=== PATIENT | female | born 1980 | race Caucasian/White ===

== ENCOUNTER 2016-05-04 17:02 | Emergency (ER) | payer MEDICAID ==
--- NOTE | 2016-05-04 17:19 | EDPHY ---
H & P Stated Complaint: abd pain since last night; x 18 days Time Seen by Provider: 05/04/16 17:18 HPI/ROS: CHIEF COMPLAINT: HISTORY OF PRESENT ILLNESS: [No fever, chills, chest pain, shortness of breath, palpitations, vomiting, diarrhea, urinary complaints, headache, lightheadedness. ] REVIEW OF SYSTEMS: Aside from elements discussed in the HPI, a comprehensive 10-point review of systems was reviewed and is negative. PAST MEDICAL HISTORY: SOCIAL HISTORY: VITAL SIGNS: Reviewed by me GENERAL: Well-developed, well-nourished, resting comfortably in no respiratory distress. HEENT: Atraumatic. Eyes: No icterus, no injection. Mouth: moist mucous membranes. No erythema or lesions. Neck: supple with no adenopathy. LUNGS: Clear to auscultation bilaterally, no wheezes, rhonchi or rales. CARDIAC: Regular rate and rhythm, no rubs, murmurs or gallops. ABDOMEN: Soft, nontender, nondistended, bowel sounds normal. BACK: No CVA tenderness. EXTREMITIES: No trauma. No edema. Range of motion is normal throughout. NEURO: Alert and oriented, grossly nonfocal. SKIN: Warm and dry, no rash. PSYCHIATRIC: Normal mentation, no agitation. Portions of this note were transcribed by a medical assistant secretary. I personally performed a history, physical exam, medical decision making, and confirmed accuracy of information the transcribed note. - Personal History Current Tetanus Diphtheria and Acellular Pertussis (TDAP): Yes - Medical/Surgical History Other PMH: 18 days post - Social History Smoking Status: Former smoker Constitutional: Initial Vital Signs Temperature (C) 37.8 C 05/04/16 17:02 Heart Rate 103 H 05/04/16 17:02 Respiratory Rate 18 05/04/16 17:02 Blood Pressure 128/68 H 05/04/16 17:02 O2 Sat (%) 97 05/04/16 17:02 O2 Delivery Mode Room Air Allergies/Adverse Reactions: doxycycline calcium [From Vibramycin] Allergy (Verified 05/04/16 17:08) doxycycline hyclate [From Vibramycin] Allergy (Verified 05/04/16 17:08) doxycycline monohydrate [From Vibramycin] Allergy (Verified 05/04/16 17:08) Home Medications: Medication Instructions Recorded NK [No Known Home Meds] 05/04/16 Report Scribed for: Analisa Jackson Report Scribed by: Jayme Gautam Date of Report: 05/04/16 Time of Report: 17:19
--- NOTE | 2016-05-04 18:02 | EDPHY ---
H & P Stated Complaint: abd pain since last night; x 18 days Time Seen by Provider: 05/04/16 17:18 HPI/ROS: CHIEF COMPLAINT: Abdominal pain. HISTORY OF PRESENT ILLNESS: The patient is a 36-year-old female 18 days presenting with upper abdominal pain since last night. The pain does not radiate. It is "throbbing" in nature. She denies alleviating factors. Pain is worsened with deep breathing. No fever, chills, chest pain, shortness of breath, palpitations, vomiting, diarrhea, urinary complaints, headache, lightheadedness. Her last was unassisted and at home. She did have to take her baby to the hospital a few hours after and he was diagnosed with transposition of the great vessels. Her BMs have been normal. She reports her lochia has been decreasing. REVIEW OF SYSTEMS: Aside from elements discussed in the HPI, a comprehensive 10-point review of systems was reviewed and is negative. PAST MEDICAL HISTORY: Denies. 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 Nonsmoker. Patient is nursing. VITAL SIGNS: Reviewed by me GENERAL: Well-developed, well-nourished, resting comfortably in no respiratory distress. HEENT: Atraumatic. Eyes: No icterus, no injection. Mouth: moist mucous membranes. No erythema or lesions. Neck: supple with no adenopathy. LUNGS: Clear to auscultation bilaterally, no wheezes, rhonchi or rales. CARDIAC: Tachycardic. Flow murmur. No rubs, murmurs or gallops. ABDOMEN: Mildly distended. Diffusely tender, especially in bilateral lower quadrants. Soft, bowel sounds normal. BACK: No CVA tenderness. EXTREMITIES: No trauma. No edema. Range of motion is normal throughout. NEURO: Alert and oriented, grossly nonfocal. SKIN: Warm and dry, no rash. PSYCHIATRIC: Normal mentation, no agitation. Portions of this note were transcribed by a medical staff specialist. I personally performed a history, physical exam, medical decision making, and confirmed accuracy of information the transcribed note. Source: Patient Exam Limitations: No limitations - Personal History Current Tetanus Diphtheria and Acellular Pertussis (TDAP): Yes - Medical/Surgical History Other PMH: 18 days post - Social History Smoking Status: Former smoker Constitutional: Initial Vital Signs Temperature (C) 37.8 C 05/04/16 17:02 Heart Rate 103 H 05/04/16 17:02 Respiratory Rate 18 05/04/16 17:02 Blood Pressure 128/68 H 05/04/16 17:02 O2 Sat (%) 97 05/04/16 17:02 O2 Delivery Mode Room Air Allergies/Adverse Reactions: doxycycline calcium [From Vibramycin] Allergy (Verified 05/04/16 17:08) doxycycline hyclate [From Vibramycin] Allergy (Verified 05/04/16 17:08) doxycycline monohydrate [From Vibramycin] Allergy (Verified 05/04/16 17:08) Home Medications: Medication Instructions Recorded NK [No Known Home Meds] 05/04/16 Medical Decision Making - Diagnostics Imaging: Study: Ultrasound of the: Uterus. Indication: Pain. Results: 6cm uterine fibroid. The study was read by the radiologist, Dr. Bunch. I viewed the images myself on the PACS system. Abdominal x-ray was obtained. I viewed the images myself on the PACS system. The radiologist interpretation is: 1. Mild focal adynamic ileus. Doubtful for partial small bowel obstruction. 2. Left nephrolithiasis versus benign chondral calcification. I discussed the x-ray findings with the patient. ED Course/Re-evaluation: An IV was established and labs ordered. Pelvic ultrasound ordered. 1000mg PO Tylenol administered for pain. WBC elevated at 12.96. Ultrasound demonstrates no retained products. Patient does not have a fever. She does have a intermural leiomyoma with a submucosal component. Plain film of the abdomen demonstrates and adynamic ileus. This was discussed with the radiologist who doubt bowel obstruction. 2104: Reassessed patient. Discussed results of lab work and ultrasound/x-ray. After long discussion the patient was agreeable to have a small dose of Toradol as well as Bentyl. It sounds like she has not been very active since returning home with her infant from [facility]. Patient was encouraged to use magnesium citrate for constipation, take Tylenol and ibuprofen for abdominal discomfort, start with a bland diet and advance as tolerated, and to be up and active as much as possible. She understands that if her symptoms are worsening, especially should develops a fever, vomiting, increasing abdominal distention, worsening pain, increasing vaginal bleeding, or other concerns, she should return to the emergency department. Differential Diagnosis: After obtaining the patient's history and performing an examination, differential diagnosis considered included but was not limited to bowel obstruction, constipation, adynamic ileus, retained products, appendicitis, cholecystitis, gastritis, pancreatitis, kidney stones, urinary tract infections and other causes. - Data Points Laboratory Results: Laboratory Results 05/04/16 17:50 05/04/16 17:50 Medications Given: Discontinued Medications Acetaminophen (Tylenol) 1,000 mg PO EDNOW ONE Stop: 05/04/16 18:26 Last Admin: 05/04/16 18:26 Dose: 1,000 mg Dicyclomine HCl (Bentyl) 20 mg PO EDNOW ONE Stop: 05/04/16 21:05 Last Admin: 05/04/16 21:33 Dose: 20 mg Sodium Chloride (Ns) 1,000 mls @ 0 mls/hr IV ONCE ONE PRN Reason: Wide Open Stop: 05/04/16 21:05 Last Admin: 05/04/16 21:30 Dose: 1,000 mls Ketorolac Tromethamine (Toradol) 30 mg IVP EDNOW ONE Stop: 05/04/16 21:05 Last Admin: 05/04/16 21:30 Dose: 30 mg Magnesium Citrate (Magnesium Citrate) 300 ml PO ONCE ONE Stop: 05/04/16 22:05 Last Admin: 05/04/16 22:05 Dose: 300 ml Departure - Departure Disposition: Home, Routine, Self-Care Clinical Impression: Abdominal pain, Adynamic ileus, Uterine fibroid Condition: Good Instructions: Uterine Fibroids (ED), Ileus (ED), Abdominal Pain (ED) Additional Instructions: For your abdominal pain, I suggested you start with a bland diet and advance as tolerated. This means start with clear liquids such as water, Gatorade, juice, flat non- caffeinated soda. If you tolerate clear liquids, then you may add bland foods such as bananas, rice, or toast. If you do not have any worsening of your symptoms, you may begin to resume a regular diet. For the constipation, I suggest magnesium citrate. Drink half the bottle, he did not have significant stool output in 4 hours, please drink the other half. You been given referral to Dr. Hart. Please follow up for further evaluation of the uterine fibroid. Return to the emergency department if you developed fevers, chills, worsening abdominal pain, vomiting, increased vaginal bleeding, or other concerns . Take Tylenol or ibuprofen as needed for abdominal discomfort. Referrals: Corry Hart DO [Doctor of Osteopathy] - As per Instructions Report Scribed for: Analisa Jackson Report Scribed by: Jayme Gautam Date of Report: 05/04/16 Time of Report: 18:47
[2016-05-04 18:11] LABS: COLOR PALE YELLOW; LEUKOCYTE ESTERASE,URINE NEGATIVE (NEGATIVE); NITRITE,URINE NEGATIVE (NEGATIVE)
[2016-05-04 18:14] LABS: BACTERIA TRACE /hpf (NONE SEEN)
[2016-05-04] MEDS ORDERED: ACETAMINOPHEN 500 MG TAB ONE (18:23)
[2016-05-04] MEDS ORDERED: ACETAMINOPHEN 500 MG TAB PO ONE (18:25)
[2016-05-04 18:30] LABS: % IMMATURE GRANULYOCYTES 0.4 % (0.0-1.1); ABSOLUTE IMMATURE GRANULOCYTES 0.05 10^3/uL (0.00-0.10); ADD DIFF? NO; ADD MORPH? NO; ADD SCAN? NO; ATYPICAL LYMPHOCYTE FLAG 0 (0-99); FRAGMENT RBC FLAG 0 (0-99); HEMOGLOBIN 11.7 g/dL (12.6-16.3); LEFT SHIFT FLG 10 (0-99); LIPEMIA HEMOLYSIS FLAG 80 (0-99); MEAN CELL HEMOGLOBIN 28.4 pg (27.9-34.1); MEAN CELL HEMOGLOBIN CONCENTR. 33.4 g/dL (32.4-36.7); MEAN PLATELET VOLUME 9.6 fL (8.7-11.7); PLATELET CLUMPS FLAG 0 (0-99); PLATELET COUNT 280 10^3/uL (150-400); RED BLOOD CELL COUNT 4.12 10^6/uL (4.18-5.33); RED CELL DISTRIBUTION WIDTH 12.5 % (11.5-15.2)
[2016-05-04 18:35] LABS: ANION GAP 11 mEq/L (8-16); CALCIUM 9.2 mg/dL (8.5-10.4); CARBON DIOXIDE 24 mEq/l (22-31); CHLORIDE 100 mEq/L (97-110); CREATININE 0.7 mg/dL (0.6-1.0); GLOMERULAR FILTRATION RATE > 60; GLUCOSE 96 mg/dL (70-100); POTASSIUM 3.7 mEq/L (3.5-5.2); SODIUM 135 mEq/L (134-144)
[2016-05-04 19:25] VITALS: RESP 16
--- NOTE | 2016-05-04 19:38 | DX ---
Abdomen 2 view 18:45 hours Indication: Abdominal pain. Technique: Upright and supine views. Comparison: None Findings: Several gaseous loops of small bowel reside in the left midabdomen. A single air-fluid leve l is present on the upright view. Moderate volume retained stool throughout the transverse and ascend ing colon. No pneumoperitoneum or mass effect. A 1 x 4 mm curvilinear calcification overlies the left midabdomen. Impression: 1. Mild focal adynamic ileus. Doubtful for partial small bowel obstruction. 2. Left nephrolithiasis versus benign chondral calcification.
[2016-05-04 19:57] LABS: ALBUMIN 3.7 g/dL (3.5-5.0); BILIRUBIN,TOTAL 1.2 mg/dL (0.1-1.4); BILIRUBIN-CONJUGATED 0.3 mg/dL (0.0-0.5); BILIRUBIN-UNCONJUGATED 0.9 mg/dL (0.0-1.1); TOTAL PROTEIN 6.9 g/dL (6.3-8.2)
--- NOTE | 2016-05-04 20:25 | US ---
Pelvic Ultrasound Indication: Pain and fever. 18 days . Technique: Transabdominal and transvaginal imaging. Comparison: Abdominal radiograph from less than one hour prior. Findings Transabdominal imaging: The anteverted uterus is expectedly enlarged, measuring 15.4 cm i n length x 9.7 x 8.1 cm axially. An intramural uterine leiomyoma with a submucosal component is albert r characterized on transvaginal imaging. No adnexal mass or free fluid. Transvaginal imaging: A round heterogeneous 6.1 x 5.9 x 5.8 cm mass in the posterior uterine body com presses and deforms the thin endometrial lining anteriorly. Minimal fluid is present in the endometri al cavity along the lateral margins of the suspected uterine leiomyoma. No vascularized material with in the endometrial cavity to suggest retained placenta. The ovaries are normal size with small peripheral follicles and normal blood flow on color Doppler im aging. No ovarian cyst. The right ovary measures 2.7 x 1.9 x 1.5 cm. The left ovary measures 3.5 x 3 .2 x 1.7 cm. Impression: 1. No evidence of retained products. Minimal fluid within the endometrial cavity. 2. A 6 cm intramural leiomyoma with a submucosal component may be etiology for persistent bleeding. 3. Normal ovaries. Comment: Results were discussed with Dr. Jackson at 8:05 p.m. on May 04, 2016.
[2016-05-04] MEDS ORDERED: KETOROLAC 30 MG/1 ML SDV IVP ONE (21:04)
[2016-05-04] MEDS ORDERED: NS 1,000 ML IV ONE (21:04)
[2016-05-04] MEDS ORDERED: DICYCLOMINE 20 MG TAB PO ONE (21:04)
[2016-05-04 21:43] VITALS: BP 106/74; PULSE 75; TEMP 98.2; O2SAT 96
[2016-05-04] MEDS ORDERED: MAGNESIUM CITRATE 300 ML BOTTLE PO ONE (22:04)
[2016-05-04] MEDS ORDERED: MAGNESIUM CITRATE 300 ML BOTTLE ONE (22:05)
== END 2016-05-04 22:11 | disposition home or self-care (01) ==
DX: O99.89 Other specified diseases and conditions complicating pregnancy, childbirth and the puerperium (principal); K56.0 Paralytic ileus; D25.9 Leiomyoma of uterus, unspecified; Z87.891 Personal history of nicotine dependence
CPT/HCPCS: 96374; J1885